=== PATIENT | male | born 1940 | race Caucasian/White ===

== ENCOUNTER 2017-01-05 14:57 | Emergency (ER) | payer MEDICARE ==
--- NOTE | ~2017-01-05 | CT4 ---
[facility] A Service of [facility] & [facility] RADIOLOGY TEXT RESULTS PATIENT: VANDANA SALAMANCA LOCATION: [facility] : 40 UNIT #: [id number] AGE: [address]: Enrico Anaya MD SEX: M ORDER DR: [id number] [facility] [address] [place], [place] [address] [id number] E MR#: [id number] #: [id number] NAME: VANDANA SALAMANCA. : 1940 SEX: M STUDY DATE/TIME: 01/05/2017 16:47 UNIT: [facility] ROOM: STUDY DESCRIPTION: CT Abd and Pelv Wo Cont Attending Physician: Enrico Anaya M.D. Ordering Physician: Enrico Anaya M.D. Primary Care Physician: Hima Bella M.D. MEDICAL IMAGING REPORT This report is preliminary unless electronic signature is present EXAM CT abdomen and pelvis without contrast HISTORY Left flank pain for 5 days and back pain. This CT exam was performed with one or more of the following radiation dose reduction techniques: automatic exposure control, adjustment of mA and/or kV according to patient size, and iterative reconstruction. FINDINGS CT abdomen and pelvis was performed without contrast CT abdomen: Moderately large hiatal hernia is similar to the prior CT. Chronic subpleural atelectasis and probable scarring in the posteromedial right lung base. The liver, spleen, pancreas, and adrenal glands are normal. Multiple nonobstructing bilateral renal calculi and additional bilateral renal arterial calcifications. No hydronephrosis. Incidental 1.5 cm cyst in the upper pole left kidney. Mild ectasia of the abdominal aorta. No bowel dilatation. No adenopathy. Small umbilical hernia containing fat measuring [address] pelvis: Normal appendix. Bilateral common iliac artery stents. Prostatic enlargement. No bladder calculi. Mesh graft along the anterior abdominal wall, extending to the superior pubic margin into the right and left of midline. IMPRESSION 1. Multiple nonobstructing bilateral renal calculi. No urinary obstruction or bowel obstruction. 2. Normal appendix. 3. Moderately large hiatal hernia. 4. Moderate prostatic enlargement. [facility] A Service of [facility] & [facility] RADIOLOGY TEXT RESULTS PATIENT: VANDANA SALAMANCA LOCATION: [facility] : 40 UNIT #: [id number] AGE: [address]: Enrico Anaya MD SEX: M ORDER DR: 5. Bilateral common iliac artery wall stents. 6. Cholecystectomy. 7. Normal appendix. 8. Chronic atelectasis and probable scarring in the posteromedial right lower lobe. Dictated by... Ramon Nugent M.D. THIS IS AN ELECTRONICALLY VERIFIED REPORT Ramon Nugent M.D. at 01/06/2017 12:52 PM [place] TD: 01/06/2017 07:21 JOB #: [id number] MEDICAL IMAGING REPORT Page 1 of 1 COPY
[~2017-01-05 14:57] MED LIST: ASPIRIN PO; ASPIRIN81 M2 PO; ATENOLOL PO; CARAFATE PO; CLOPIDOGREL75 MG PO; FISH OIL 1,0001 EAC3 PO; MULTI VITAMIN1 EACH PO; NEXIUM 24HR20 M1; NEXIUM PO; PRILOSEC PO; SIMVASTATIN80 MG PO; ZETIA PO; ZOCOR PO
[2017-01-05 16:48] LABS: URINE SOURCE CLEAN CATCH
[2017-01-05 16:55] LABS: URINE APPEARANCE CLOUDY; URINE BILIRUBIN NEG (NEG); URINE BLOOD NEG (NEG); URINE COLOR YELLOW; URINE GLUCOSE NEG (NEG); URINE KETONE NEG (NEG); URINE LEUKOCYTE ESTERASE 2+ (NEG); URINE NITRATE NEG (NEG); URINE PH 6.5 (5-8); URINE PROTEIN NEG (NEG); URINE SPECIFIC GRAVITY 1.012 (1.003-1.035)
[2017-01-05 16:58] LABS: BASOPHIL% 0.5 % (0-2.5); EOSINOPHIL# 0.1 X10e3 (0-0.7); EOSINOPHIL% 0.8 % (0.0-7.0); HEMOGLOBIN 14.2 gm/dL (13.0-16.0); LYMPHOCYTE% 25.8 % (17.0-45.0); MEAN CORPUSCULAR HEMOGLOBIN 30.9 PG (28-34); MEAN CORPUSCULAR HGB CONC 34.7 g/dL (30-36); MEAN PLATELET VOLUME 10.9 FL (6.5-11.5); MONOCYTE# 0.7 X10e3 (0-1.0); MONOCYTE% 9.3 % (3.0-12.0); NEUTROPHIL# 4.9 X10e3 (1.5-7.1); NEUTROPHIL% 63.6 % (40-75); PLATELET COUNT 82 X10e3 (140-420); RED BLOOD COUNT 4.61 X10e (3.90-5.60); RED CELL DISTRIBUTION WIDTH 13.3 % (11.0-15.5); WHITE BLOOD COUNT 7.7 X10e3 (4.0-10.5)
[2017-01-05 16:59] LABS: CULTURE INDICATED? YES; URINE BACTERIA AUWI NEG (NEGATIVE); URINE SQUAMOUS EPITHELIAL CELL OCC /[HPF]
[2017-01-05 17:27] LABS: DIFF IND YES
[2017-01-05 17:30] LABS: CALCIUM SERUM 9.2 mg/dL (8.4-10.2); GLOM FILT RATE Estimated 72.8 mL/min (>60); POTASSIUM 4.3 mmol/L (3.5-5.1)
[2017-01-05 17:38] LABS: RBC NORMAL YES
[2017-01-05 17:39] LABS: PLATELET ESTIMATE DECREASED (NORMAL)
== END 2017-01-05 17:55 | disposition home or self-care (01) ==
LOC: CED 14:57
PROVIDERS: Emergency Medicine
DX: S39.012A Strain of muscle, fascia and tendon of lower back, initial encounter (principal); N10 Acute pyelonephritis; N30.00 Acute cystitis without hematuria; I10 Essential (primary) hypertension; I25.10 Atherosclerotic heart disease of native coronary artery without angina pectoris; F17.200 Nicotine dependence, unspecified, uncomplicated; Z91.041 Radiographic dye allergy status; Z79.899 Other long term (current) drug therapy; Z79.82 Long term (current) use of aspirin; X58.XXXA Exposure to other specified factors, initial encounter
CPT/HCPCS: 36415; 74176; 80048; 81003; 85025; 87086; 99284